=== PATIENT | male | born 1965 | race Caucasian/White ===

== ENCOUNTER → 2017-06-01 | Outpatient (CLI) | payer BC ==
[~2017-06-01] MED LIST: CEPH500C PO; CITA10TA70 PO; CPR500T; FLUT1DIS26 IH; HYDR-3583 PO; HYDR1TAB8 OP; HYOS0.1283 SL; KETO10TA PO; OMEP-10 GT; ONDA4TAB8 PO; ONDA8TAB6 PO; OXYC-12 PO
--- NOTE | 2017-06-01 17:56 | Diagnostic Imaging Report ---
INDICATION: Shortness of breath with right-sided back pain. History of tobacco use. Comparison with 10/11/2015. FINDINGS: There is obstructive interstitial lung disease. There are no acute infiltrates. Heart is not enlarged. No pulmonary edema. No pneumothorax or pleural effusion. IMPRESSION: Obstructive interstitial lung disease with no acute changes demonstrated. Dictated by: Dictated on workstation # [id number]
== END ==
LOC: RAD 17:14
PROVIDERS: ATTEND Urology
DX: J44.9 Chronic obstructive pulmonary disease, unspecified (principal); Z72.0 Tobacco use
CPT/HCPCS: 71020

== ENCOUNTER → 2019-04-28 | Outpatient (CLI) | payer BC ==
--- NOTE | 2019-04-28 09:56 | Diagnostic Imaging Report ---
PROCEDURE: CT abdomen and pelvis without contrast. TECHNIQUE: Multiple contiguous axial images were obtained through the abdomen and pelvis without the use of intravenous contrast. Auto Exposure Controls were utilized during the CT exam to meet ALARA standards for radiation dose reduction. INDICATION: Hematuria. Correlation is made with prior CT from 10/11/2015. The lung bases are clear. Small low densities in the left lobe of the liver appear stable. These are too small to characterize but most likely represent cysts. Gallbladder is unremarkable. No biliary duct dilatation is seen. Pancreas and spleen are unremarkable. No adrenal mass is detected. There is a tiny approximately 1 mm nonobstructing calculus in the mid left kidney. No hydronephrosis is seen. Right kidney is unremarkable. Aorta is calcified but non-aneurysmal. Bowel loops appear to be nonobstructed. There is no ascites. Bladder is unremarkable. There are some prostatic calcifications present. Bony structures are nonacute. IMPRESSION: 1. Tiny nonobstructing left renal calculus. No hydronephrosis is seen. 2. No acute feature in the abdomen or pelvis is identified. Dictated by: Dictated on workstation # [id number]
== END ==
LOC: RAD 09:04
PROVIDERS: ATTEND Urology
DX: R31.9 Hematuria, unspecified (principal)
CPT/HCPCS: 74176

== ENCOUNTER → 2019-06-30 | Outpatient (CLI) | payer BC | LOC: WOUNDCARE 08:06 | PROVIDERS: ATTEND Surgery | DX: I70.269 Atherosclerosis of native arteries of extremities with gangrene, unspecified extremity (principal); L98.492 Non-pressure chronic ulcer of skin of other sites with fat layer exposed; L98.491 Non-pressure chronic ulcer of skin of other sites limited to breakdown of skin; I73.1 Thromboangiitis obliterans [Buerger's disease]; T65.222A Toxic effect of tobacco cigarettes, intentional self-harm, initial encounter; F17.218 Nicotine dependence, cigarettes, with other nicotine-induced disorders | CPT/HCPCS: 99213 ==

== ENCOUNTER 2021-04-21 07:03 | Outpatient (CLI) | payer BC ==
[~2021-04-21] VITALS: Ht 177 cm; Wt 61.4 kg
[2021-04-21] MEDS ORDERED: TMSL.4C PO (15:46)
[2021-04-21] MEDS ORDERED: DEXT10TA9 PO (15:46)
[2021-04-21] MEDS ORDERED: ALBU10PO MC (15:46)
== END 2021-04-21 16:42 | disposition home or self-care (01) ==
LOC: PREOP 07:03
PROVIDERS: ATTEND Surgery
DX: Z01.818 Encounter for other preprocedural examination (principal)

== ENCOUNTER 2021-04-28 11:24 | Day surgery (SDC) | payer BC ==
[~2021-04-28] VITALS: Ht 177 cm; Wt 61.4 kg
[2021-04-28] VITALS (12 sets, daily range): BP systolic 97–112; BP diastolic 54–80
[~2021-04-28 11:24] MED LIST changes: +ALBU10PO MC; +DEXT10TA9 PO; +TMSL.4C PO
[2021-04-28] MEDS ORDERED: ceFAZolin INJECTION 1,000 MG in WATER (STERILE) FOR INJECTION 10 ML IV ONE (11:30)
[2021-04-28] MEDS ORDERED: LACTATED RINGERS 1,000 ML IV PRN (11:30)
[2021-04-28] MEDS ORDERED: fentaNYL INJ 100 MCG/2 ML AMP ONE (11:52)
[2021-04-28] MEDS ORDERED: LIDOCAINE PF 2% 5 ML (XYLOCAINE) VIAL ONE (11:52)
[2021-04-28] MEDS ORDERED: ONDANSETRON 4 MG/2 ML (SDV) Z0FRAN ONE (11:52)
[2021-04-28] MEDS ORDERED: MIDAZOLAM 2 MG/2 ML (VERSED) VIAL ONE (11:52)
[2021-04-28] MEDS ORDERED: proPOfol 200 MG/20 ML (DIPRIVAN) VIAL IV ONE (11:52)
[2021-04-28] MEDS ORDERED: LIDOCAINE/EPI 1%-1:200,000 (XYLOCAINE) 30 ML VIAL ONE (12:32)
[2021-04-28] MEDS ORDERED: morphine INJ 10 MG/ML 1ML (SYR OR VIAL) IVP PRN ×2 (13:00)
[2021-04-28] MEDS ORDERED: morphine INJ 10 MG/ML 1ML (SYR OR VIAL) IVP ONE (13:00)
[2021-04-28] MEDS ORDERED: ACETAMINOPHEN 325 MG TABLET PO PRN (13:00)
[2021-04-28] MEDS ORDERED: HYDROmorphone 2 MG/ML VIAL (DILAUDID) IV ONE (13:00)
[2021-04-28] MEDS ORDERED: oxyCODONE/APAP 5/325MG (PERCOCET 5) TABLET PO PRN (13:00)
[2021-04-28] MEDS ORDERED: ONDANSETRON 4 MG/2 ML (SDV) Z0FRAN IVP PRN ×2 (13:00)
--- NOTE | 2021-04-28 13:00 | Progress Note-Pre Operative ---
Pre-Operative Progress Note H&P Reviewed The H&P was reviewed, patient examined and no changes noted. Date Seen by Provider: Apr 28, 2021 Time Seen by Provider: 12:30 Date H&P Reviewed: Apr 28, 2021 Time H&P Reviewed: 12:30 Pre-Operative Diagnosis: sx reducible left inguinal hernia LAYLA PHAN MD Apr 28, 2021 13:00
[2021-04-28] MEDS ORDERED: HYDR-3820 PO (13:03)
--- NOTE | 2021-04-28 13:04 | Discharge Inst-Surgical ---
D/C Lap Instructions-EMILIE New, Converted, or Re-Newed RX: RX on Chart Follow Up Appt in 2 weeks Activity as tolerated No driving for 24 hours No driving while on pain medications Incentive Spirometry use every 2 hours while awake Regular Diet Symptoms to Report: Fever over 101 degree F, Nausea/Vomiting Infection Signs and Symptoms to report: Increased redness, Foul odor of wound, Increased drainage Bathing instructions: May shower Operative Area Clean/Dry; Keep incision clean/dry If any problems/questions: Contact your physician or go to Emergency Room LAYLA PHAN MD Apr 28, 2021 13:04
[2021-04-28] MEDS ORDERED: GLYCOPYRROLATE 0.2 MG/ML (ROBINUL) 2 ML VIAL ONE (14:07)
[2021-04-28] MEDS ORDERED: NEOSTIGMINE 3 MG/3 ML VIAL ONE (14:07)
[2021-04-28] MEDS ORDERED: ROCURONIUM 10 MG/ML 5 ML SYRINGE IV ONE (14:07)
--- NOTE | 2021-04-28 14:46 | Progress Note-Post Operative ---
Post-Operative Progess Note Surgeon (s)/Hydraulic Miner Blasting (s) Surgeon LAYLA PHAN MD Hydraulic Miner Blasting: david fishman PUBLIC WORKS MANAGER Pre-Operative Diagnosis sx reducible left inguinal hernia Post-Operative Diagnosis same(direct) Procedure & Operative Findings Date of Procedure 04/28/21 Procedure Performed/Findings laparoscopic left inguinal hernia repair with mesh Anesthesia Type get Estimated Blood Loss Estimated blood loss (mL): minimal Specimens/Packing Specimens Removed none LAYLA PHAN MD Apr 28, 2021 14:46
[2021-04-28] MEDS ORDERED: SEVOFLURANE (ULTANE) 15 ML INHAL SOLN ONE (14:47)
--- NOTE | 2021-04-28 15:59 | OPERATIVE REPORT ---
DATE OF SERVICE: 04/28/2021 ATTENDING PRIMARY CARE PHYSICIAN: Clint Altman MD. PREOPERATIVE DIAGNOSIS: Symptomatic reducible left inguinal hernia. POSTOPERATIVE DIAGNOSIS: Symptomatic reducible left direct inguinal hernia. SURGEON: Layla Phan MD. PUBLIC RELATIONS WRITER: Wilman Cobos APRN. ANESTHESIA: General endotracheal. ESTIMATED BLOOD LOSS: Minimal. FINDINGS: Symptomatic reducible left direct inguinal hernia. DISPOSITION: The patient tolerated the procedure well. INDICATIONS FOR PROCEDURE: The patient is a 56-year-old male, who has had pain and swelling in the left inguinal region since 2016. At that time, this was not near symptomatic; however, over the years, this lesion has grown larger and more painful. Upon examination, he was found to have a reducible left inguinal hernia, which was tender to palpation. He is otherwise eating well and having normal bowel movements. DESCRIPTION OF PROCEDURE: The patient was brought to the operating room and laid supine on the table. After adequate IV pain and sedative medications and general endotracheal intubation, the abdomen was prepped and draped in a standard surgical fashion. A 0.5% Marcaine with epinephrine was then used to anesthetize the infraumbilical rim and a crescent shaped skin incision was made using a 15 blade. A sharp towel clamp was used to retract the abdominal wall anteriorly and a Veress needle was inserted with low opening pressure of 0 mmHg. The abdomen was then insufflated to 15 mmHg pressure. The Veress needle was removed and a 5 mm XL trocar was placed followed by a 5 mm 45-degree angle laparoscope visualizing the peritoneal cavity. A XL trocar was placed followed by a 10 mm 45-degree angle laparoscope visualizing the peritoneal cavity. A four-quadrant abdominal exploration was performed. A direct left inguinal hernia was identified with nothing within the hernia sac. There was no right inguinal hernia component. Small bowel and colon appeared normal. Under direct visualization, we then proceeded to place bilateral 5 mm ports after the skin and peritoneal lining were anesthetized using a 0.5% Marcaine with epinephrine and transverse skin incision was made using a 15 blade. The patient was then placed in a Trendelenburg position and the peritoneal lining was then opened starting laterally towards the conjoined tendon and inguinal ligament using the Sonicision. We then proceeded medially until Jorge A's ligament was identified. We then proceeded with inferior dissection encompassing the hernia sac. The cord and surrounding contents identified and spared throughout the process. Good hemostasis was observed and a 3DMax polypropylene mesh was placed into the peritoneal cavity and tacked to the Jorge A's ligament medially and to the inguinal ligament laterally. The peritoneal lining was then placed over the mesh and a few absorbable tacks were placed to keep this in place with visualization of good hemostasis. The 10 mm port site fascia and peritoneum were then closed under direct visualization using a Marques-Jessica device and 0 Vicryl suture. The abdomen was then desufflated and remaining ports were removed. All skin incisions were closed using 4-0 Monocryl running subcuticular sutures. Wounds were then cleaned and covered with Dermabond. The patient tolerated the procedure well. We will start IV normal pain medication as well as a clear liquid diet. Once he is tolerating clears, has good pain control with oral pain medications, and ambulating well, we will discharge him home. He will be strictly instructed to do no heavy lifting or exertion for the first 2 weeks and then after that to slowly incorporate some activities; however, still no heavy lifting and exertion until total of six weeks from the surgery date. Job ID: [id number] DocumentID: [id number] Dictated Date: 04/28/2021 14:51:55 Continuous Pickling Line Pickler Helper Date: 04/28/2021 15:58:36 Dictated By: LAYLA PHAN MD
--- NOTE | 2021-04-28 16:01 | Anesthesia-General Post-Op ---
General Patient Condition Mental Status/LOC: Same as Preop Cardiovascular: Satisfactory Nausea/Vomiting: Absent Respiratory: Satisfactory Pain: Controlled Complications: Absent Post Op Complications Complications None Follow Up Care/Instructions Patient Instructions None needed. Anesthesia/Patient Condition Patient Condition Patient is doing well, no complaints, stable vital signs, no apparent adverse anesthesia problems. No complications reported per nursing. KOURTNEY TIRADO DO Apr 28, 2021 16:01
== END 2021-04-28 17:00 ==
LOC: SDC 11:24
PROVIDERS: ATTEND Surgery
DX: K40.90 Unilateral inguinal hernia, without obstruction or gangrene, not specified as recurrent (principal); J45.909 Unspecified asthma, uncomplicated; F90.9 Attention-deficit hyperactivity disorder, unspecified type; F17.210 Nicotine dependence, cigarettes, uncomplicated; Z79.899 Other long term (current) drug therapy; Z79.891 Long term (current) use of opiate analgesic; Z80.52 Family history of malignant neoplasm of bladder; Z80.3 Family history of malignant neoplasm of breast; Z83.3 Family history of diabetes mellitus
CPT/HCPCS: 87081

== ENCOUNTER 2021-06-13 05:43 | Outpatient (CLI) | payer BC ==
[~2021-06-13] VITALS: Ht 177.8 cm; Wt 65.4 kg
[~2021-06-13 05:43] MED LIST changes: -ACHYD1T PO; -FINA5TAB PO; -RT-ALBUINH IH
[2021-06-13] MEDS ORDERED: FINA5TAB PO (13:21)
[2021-06-13] MEDS ORDERED: DEXT10TA9 PO (13:22)
[2021-06-13] MEDS ORDERED: ACHYD1T PO (13:22)
[2021-06-13] MEDS ORDERED: RT-ALBUINH IH (13:22)
== END 2021-06-13 13:31 | disposition home or self-care (01) ==
LOC: PREOP 05:43
PROVIDERS: ATTEND Urology
DX: Z01.818 Encounter for other preprocedural examination (principal)

== ENCOUNTER → 2021-06-13 | Outpatient (CLI) | payer BC ==
[~2021-06-13] MED LIST changes: +ACHYD1T PO; +FINA5TAB PO; +HYDR-3820 PO; +RT-ALBUINH IH
--- NOTE | 2021-06-13 18:45 | Diagnostic Imaging Report ---
PROCEDURE: CT abdomen and pelvis without contrast, 06/13/2021. TECHNIQUE: Multiple contiguous axial images were obtained through the abdomen and pelvis without the use of intravenous contrast. Auto Exposure Controls were utilized during the CT exam to meet ALARA standards for radiation dose reduction. INDICATION: Cystitis, hematuria. COMPARISON: 04/28/2019 FINDINGS: The lung bases are clear. The nonopacified abdominal viscera limited by the lack of contrast with no gross acute abnormality appreciated within the liver or spleen. The pancreas and adrenal glands are unremarkable. The gallbladder is contracted. There is no nephrolithiasis or hydronephrosis on either side. The ureters are not seen along their entire course. The expected location of the ureters however demonstrates no evidence for ureteral stones. There is diffuse atherosclerotic disease. There is prominence of the prostate gland with associated calcifications. There are several prominent fluid-filled small bowel loops throughout the abdomen which could be normal for patient with enteritis not excluded. There is no ascites or free air. There are findings of moderate constipation. Appendix is not well seen. There is no acute osseous abnormality. IMPRESSION: 1. Normal appearance of the kidneys with no hydronephrosis or ureteral stones appreciated. 2. Slightly prominent small bowel loops which could be normal for patient versus an enteritis. Correlate with symptoms. 3. Findings of constipation with other incidental findings, as discussed above. Dictated by: Dictated on workstation # [id number]
== END ==
LOC: RAD 17:01
PROVIDERS: ATTEND Urology
DX: K59.00 Constipation, unspecified (principal); I25.10 Atherosclerotic heart disease of native coronary artery without angina pectoris; N30.91 Cystitis, unspecified with hematuria
CPT/HCPCS: 74176

== ENCOUNTER 2021-06-16 06:21 | Day surgery (SDC) | payer BC ==
[~2021-06-16] VITALS: Ht 177.8 cm; Wt 65.4 kg
[2021-06-16] VITALS (10 sets, daily range): BP systolic 93–128; BP diastolic 60–88
[~2021-06-16 06:21] MED LIST changes: +ACHYD1T PO; +FINA5TAB PO; +RT-ALBUINH IH
[2021-06-16] MEDS ORDERED: cefTRIAXone 1,000 MG in WATER (STERILE) FOR INJECTION 10 ML IV ONE (06:30)
[2021-06-16] MEDS ORDERED: LACTATED RINGERS 1,000 ML IV PRN (06:30)
[2021-06-16] MEDS ORDERED: cefTRIAXone 1 GM/50 ML (PRE-MIX) IV ONE (07:00)
[2021-06-16] MEDS ORDERED: proPOfol 200 MG/20 ML (DIPRIVAN) VIAL IV ONE (07:07)
[2021-06-16] MEDS ORDERED: ONDANSETRON 4 MG/2 ML (SDV) Z0FRAN ONE (07:07)
[2021-06-16] MEDS ORDERED: MIDAZOLAM 2 MG/2 ML (VERSED) VIAL ONE ×2 (07:07→07:09)
[2021-06-16] MEDS ORDERED: fentaNYL INJ 100 MCG/2 ML AMP ONE (07:07)
[2021-06-16] MEDS ORDERED: SEVOFLURANE (ULTANE) 15 ML INHAL SOLN ONE ×2 (07:07→07:47)
[2021-06-16] MEDS ORDERED: LIDOCAINE PF 2% 5 ML (XYLOCAINE) VIAL ONE (07:07)
[2021-06-16] MEDS ORDERED: MIDAZOLAM 2 MG/2 ML (VERSED) VIAL IV ONE (07:15)
--- NOTE | 2021-06-16 07:29 | Progress Note-Pre Operative ---
Pre-Operative Progress Note H&P Reviewed The H&P was reviewed, patient examined and no changes noted. Date Seen by Provider: Jun 16, 2021 Time Seen by Provider: 07:29 Date H&P Reviewed: Jun 16, 2021 Time H&P Reviewed: 07:29 Pre-Operative Diagnosis: CYSTITIS, PROSTATITIS, POSSIBLE BLADDER TUMOR STEVEN THOMAS MD Jun 16, 2021 07:29
--- NOTE | 2021-06-16 07:30 | Progress Note-Post Operative ---
Post-Operative Progess Note Surgeon (s)/Gas Appliance Installer (s) Surgeon STEVEN THOMAS MD Gas Appliance Installer: NONE Pre-Operative Diagnosis CYSTITIS, PROSTATITIS, POSSIBLE BLADDER TUMOR Post-Operative Diagnosis SAME Procedure & Operative Findings Date of Procedure 06/16/21 Procedure Performed/Findings CYSTOSCOPY Anesthesia Type GENERAL Estimated Blood Loss Estimated blood loss (mL): NONE Specimens/Packing Specimens Removed NONE Packing: NONE STEVEN THOMAS MD Jun 16, 2021 07:30
--- NOTE | 2021-06-16 07:32 | Discharge Inst-Urology ---
Discharge Inst-Urology Reconcile Patient Problems Problems Reviewed?: Yes Final Diagnosis CYSTITIS, PROSTATITIS Patient Instructions/Follow Up Plan/Assessment/Instructions Please make appointment to been seen in office in 2 weeks. Take Flomax 0.4 BID, continue Proscar daily, stop Levbid, Warm sitz bath daily, take Aleve 2 Every 12 hours with food Increase oral fluids for 48 hours and then as needed. Diet and Activity as tolerated. If questions or concerns contact your physician Or seek help at emergency department. STEVEN THOMAS MD Jun 16, 2021 07:32
--- NOTE | 2021-06-16 08:07 | Anesthesia-General Post-Op ---
General Patient Condition Mental Status/LOC: Same as Preop Cardiovascular: Satisfactory Nausea/Vomiting: Absent Respiratory: Satisfactory Pain: Controlled Complications: Absent Post Op Complications Complications None Follow Up Care/Instructions Patient Instructions None needed. Anesthesia/Patient Condition Patient Condition Patient is doing well, no complaints, stable vital signs, no apparent adverse anesthesia problems. No complications reported per nursing. LADONNA HERNADEZ CRNA Jun 16, 2021 08:07
[2021-06-16] MEDS ORDERED: morphine INJ 10 MG/ML 1ML (SYR OR VIAL) IVP ONE (08:15)
[2021-06-16] MEDS ORDERED: MEPERIDINE (DEMEROL) INJ 50 MG/ML IVP ONE (08:15)
[2021-06-16] MEDS ORDERED: fentaNYL INJ 100 MCG/2 ML AMP IVP ONE (08:15)
[2021-06-16] MEDS ORDERED: ONDANSETRON 4 MG/2 ML (SDV) Z0FRAN IVP PRN (08:15)
--- NOTE | 2021-06-16 08:42 | Progress Note-Post Operative ---
Post-Operative Progess Note Surgeon (s)/Smoking Pipe Coater (s) Surgeon STEVEN THOMAS MD Smoking Pipe Coater: NONE Pre-Operative Diagnosis CYSTITIS, PROSTATITIS, POSSIBLE BLADDER TUMOR Post-Operative Diagnosis SAME, NO BLADDER TUMOR Procedure & Operative Findings Date of Procedure 06/16/21 Procedure Performed/Findings CYSTOCOPY Anesthesia Type LOCAL Estimated Blood Loss Estimated blood loss (mL): NONE Specimens/Packing Specimens Removed NONE Packing: NONE STEVEN THOMAS MD Jun 16, 2021 08:42
--- NOTE | 2021-06-16 13:49 | OPERATIVE REPORT ---
DATE OF SERVICE: 06/16/2021 PREOPERATIVE DIAGNOSES: Prostatitis, possible cystitis, possible bladder tumor. POSTOPERATIVE DIAGNOSES: Prostatitis, possible cystitis. No bladder tumor. OPERATION PERFORMED: Cystoscopy. SURGEON: Quinton Thomas MD ANESTHESIA: General. COMPLICATIONS: None. DESCRIPTION OF PROCEDURE: Under satisfactory general anesthesia, the patient in lithotomy position, genitalia were prepped and draped in the usual sterile fashion. Cystoscope was introduced under vision. The anterior urethra was normal. The prostate was mildly enlarged with bladder neck obstruction. Bladder was entered, revealed trabeculations, but no evidence of carcinoma in situ, interstitial cystitis or simple cystitis. No foreign body, no bladder tumor. No stones. Ureteric orifices with clear effluxes. Cystoscopy was confirmed with both lenses. Bladder was evacuated and the cystoscope was removed. The patient tolerated the procedure and anesthesia well and was sent to recovery room in stable condition. PLAN: We will continue the Flomax b.i.d. and Proscar daily, warm Sitz baths daily, Aleve two twice a day with food. We will see him back in 2 weeks. If his symptoms are mostly obstructive, we may consider a UroLift on him. If his symptoms are mostly irritative, we may consider refer him to [facility] for a second opinion and to rule out interstitial cystitis. This was explained to his sister and will be explained to him and his ex- later on. We will see him back at the office in 2 weeks. Job ID: [id number] DocumentID: [id number] Dictated Date: 06/16/2021 08:49:39 [employer] Portal Consultant Date: 06/16/2021 13:48:47 Dictated By: QUINTON THOMAS MD
== END 2021-06-16 11:05 | disposition home or self-care (01) ==
LOC: SDC 06:21
PROVIDERS: ATTEND Urology
DX: N41.9 Inflammatory disease of prostate, unspecified (principal); N40.1 Benign prostatic hyperplasia with lower urinary tract symptoms; N13.8 Other obstructive and reflux uropathy; J44.9 Chronic obstructive pulmonary disease, unspecified; F32.A Depression, unspecified; F17.210 Nicotine dependence, cigarettes, uncomplicated; Z79.899 Other long term (current) drug therapy; Z80.42 Family history of malignant neoplasm of prostate; Z80.52 Family history of malignant neoplasm of bladder
CPT/HCPCS: 87081